=== PATIENT | female | born 1950 | race Hispanic/Latino ===

== ENCOUNTER 2023-01-14 08:12 | Emergency (ER) | payer OTHER ==
[~2023-01-14] VITALS: Ht 157.5 cm; Wt 70.3 kg
[~2023-01-14 08:12] MED LIST: ATOR40TA71 PO; FLUT1DIS4 IH; GABA-534 PO; METO-409 PO; OZEMPIC SQ
[2023-01-14 08:22] VITALS: BP 175/83; PULSE 80; RESP 18; O2SAT 95
[2023-01-14] MEDS ORDERED: METH4TAB3 PO (09:56)
[2023-01-14] MEDS ORDERED: SOLU-MEDROL 125MG VIAL IVP ONE (10:00)
== END 2023-01-14 10:58 | disposition home or self-care (01) ==
LOC: EDH 08:12
DX: S76.012A Strain of muscle, fascia and tendon of left hip, initial encounter (principal); S70.02XA Contusion of left hip, initial encounter; E11.9 Type 2 diabetes mellitus without complications; E78.00 Pure hypercholesterolemia, unspecified; I10 Essential (primary) hypertension; Z79.51 Long term (current) use of inhaled steroids; Z79.899 Other long term (current) drug therapy; W18.39XA Other fall on same level, initial encounter; Y93.01 Activity, walking, marching and hiking; Y92.89 Other specified places as the place of occurrence of the external cause; Y99.8 Other external cause status
CPT/HCPCS: 99284; 96374; 82948; 73502; 72170; J2930